=== PATIENT | female | born 1975 | race Caucasian/White ===

== ENCOUNTER 2017-12-18 01:56 | Observation (INO) | payer MEDICAID | END 2017-12-18 05:16 | disposition home or self-care (01) | LOC: FLD 01:56 | PROVIDERS: ADMIT Advanced Practice Midwife; ATTEND Advanced Practice Midwife | DX: O09.523 Supervision of elderly multigravida, third trimester (principal); Z3A.39 39 weeks gestation of pregnancy | CPT/HCPCS: 59025; G0378 ==

== ENCOUNTER 2017-12-18 12:02 | Inpatient (IN) | payer MEDICAID ==
[2017-12-18] MEDS ORDERED: OLIVE OIL 118 ML BTL MISC PRN (12:51)
[2017-12-18] MEDS ORDERED: IBUPROFEN 600 MG TAB PO PRN (12:51)
[2017-12-18] MEDS ORDERED: MISOPROSTOL 200 MCG TAB PO PRN (12:51)
[2017-12-18] MEDS ORDERED: LIDOCAINE 1% 300 MG/30 ML SDV SC PRN (12:51)
[2017-12-18] MEDS ORDERED: EPSOM SALT 454 GM TP PRN (12:51)
[2017-12-18] MEDS ORDERED: OXYTOCIN/RINGERS LACTATE 1,000 ML IV PRN (12:51)
[2017-12-18] MEDS ORDERED: TERBUTALINE SULFATE 1 MG/ML VIAL IV PRN (12:51)
[2017-12-18] MEDS ORDERED: AMMONIA AROMATIC 1 EACH AMP IH PRN (12:51)
[2017-12-18] MEDS ORDERED: LR 1,000 ML IV PRN (12:51)
--- NOTE | 2017-12-18 13:20 | PDGENHP ---
History and Physical History and Physical: Care: [facility] HPI: Pt started having contractions last yesterday that began in the morning and become stronger last night. Was evaluated in L & D for a labor check and found to be 2 cm. Contractions spaced out and she went home. She reports they became stronger this morning and are now anywhere from 2 to 5 minutes apart. Moaning and rocking through them. Patient is a 42 yo G 3 P 1 @ 39.4 weeks that presents to L&D with complaints of contractions q 2 - 5 minutes that are intense EDC: 12/21/2017 which is based on LMP: 03/23/2018 which is known and consistent with Ultrasound. Her is complicated by: AMA greater than 40; anemia Review of Systems: Constitutional: Denies any fever, chills, or fatigue HEENT: denies any visual changes, difficulty swallowing, hearing loss Cardiovascular: Denies any chest pain, palpitations, leg swelling Respiratory: denies any cough, wheezing, or shortness of breathe GI: Denies any nausea, vomiting, diarrhea, constipation : denies any dysuria, urgency, frequency, vaginal bleeding Musculoskeletal: denies any muscle or bone pain Skin: denies any rashes Neuro: denies any headache, seizures, lightheadedness, dizziness, or loss of consciousness Psychiatric: denies any depression, anxiety, or SI/HI thoughts HISTORY: Previous OB history: at 42 weeks 9 lb 2 oz uncomplicated Past medical history: hx of severely dysplastic nevi and atypical precancerous nevi. One removed from the abdomen Past surgical history: none Social: Denies any alcohol, tobacco, or drug use. Family history: Not relevant Medications: PNV Allergies (list reaction): PCN- rash; Clindamycin-fever LABS: Rh: O+ ABS: Neg Rubella: non Immune HbsAg: NR HIV: NR VDRL: NR 1hr: results not in the transfer in records; pt states they were normal GC: Neg Chlamydia: Neg Pap: Normal GBS: Neg BMI: (prepreg) 21 PHYSICAL EXAM: Constitutional: WN, A&Ox3 HEENT: normocephalic atraumatic, supple Skin: Warm, dry, intact Heart: RRR, no murmur Chest: CTA-B Abdomen: Soft, nontender, gravid SVE: 6/100 Extremities: neg edema, negative homans sign Neuro: grossly normal Psych: normal affect assessment: FHT baseline 140 +accels, no decels, moderate variability Contractions: toco q 3 Assessment: 1) 42 yo G 3 P 1 with IUP@ 39.4; AMA 2) active labor 3) GBS neg 4) Cat 1 FHR tracing Plan: 1) Admit to L&D 2) Orders added. Desires nitrous for now, may want an epidural 3) MMR pp 4) Anticipate
[2017-12-18 13:41] LABS: PLATELET COUNT 240 10^3/uL (150-400)
[2017-12-18] MEDS ORDERED: fentaNYL 100 MCG/2 ML INJ ONE (13:58)
[2017-12-18] MEDS ORDERED: fentaNYL 2MCG/ML/BUP 0.1% RTU 100 ML BAG EP ONE (13:58)
[2017-12-18] MEDS ORDERED: PHENYLEPHRINE HCL 100 MCG/ML SYR ONE (13:59)
[2017-12-18] MEDS ORDERED: BUPIVACAINE 0.25% 30 ML SDV ONE (13:59)
[2017-12-18] MEDS ORDERED: PHENYLEPHRINE HCL 100 MCG/ML SYR IVP PRN (14:33)
[2017-12-18] MEDS ORDERED: ONDANSETRON 4 MG/2 ML VIAL IVP PRN (14:33)
--- NOTE | 2017-12-18 14:33 | PREANESOB ---
Anesthesia Allergies/Adverse Reactions: Allergy/AdvReac Type Severity Reaction Status Date / Time clindamycin Allergy Mild Fever Verified 12/18/17 02:21 Penicillins Allergy Unknown Unknown Verified 12/18/17 02:21 Visit Medications: Generic Name Dose Route Start Last Admin Trade Name Vishnuq PRN Reason Stop Dose Admin Ammonia (Aromatic Spirit) 1 each 12/18/17 12:51 Ammonia Aromatic IH 12/28/17 12:50 ONCE PRN Fainting Lactated Ringer's 1,000 mls @ 0 mls/hr 12/18/17 12:51 Lr IV 12/19/17 12:50 PRN PRN SEE PROTOCOL CONDITIONS Protocol Per Protocol Oxytocin/Lactated Ringer's 1,000 mls @ 0 mls/hr 12/18/17 12:51 Pitocin 20 Units/Lr (Premix) IV PRN PRN Post bleeding As Directed Ibuprofen 600 mg 12/18/17 12:51 Motrin PO ONCE PRN post , pain Lidocaine HCl 300 mg 12/18/17 12:51 Lidocaine Hcl 1% SC 06/16/18 12:50 ONCE PRN episiotomy Magnesium Sulfate 454 gm 12/18/17 12:51 Epsom Salt TP 06/16/18 12:50 Q1H PRN perineal discomfort Misoprostol 800 - 1,000 mcg 12/18/17 12:51 Cytotec PO 06/16/18 12:50 ONCE PRN Vaginal Atony/B[place]eding [place] Oil 118 ml 12/18/17 12:51 Sweet Oil MISC 06/16/18 12:50 ONCE PRN perineal massage Terbutaline Sulfate 0.25 mg 12/18/17 12:51 Brethine IV 06/16/18 12:50 ONCE PRN Tachysystole Discontinued Medications Generic Name Dose Route Start Last Admin Trade Name Po PRN Reason Stop Dose Admin Bupivacaine HCl Confirm 12/18/17 13:59 Sensorcaine 0.25% Sdv Administered 12/18/17 14:00 Dose 30 ml .ROUTE .STK-MED ONE Fentanyl Confirm 12/18/17 13:58 Sublimaze Administered 12/18/17 13:59 Dose 100 mcg .ROUTE .STK-MED ONE Fentanyl/Bupivacaine HCl Confirm 12/18/17 13:58 Fentanyl/Bupivacaine/Ns 2 Mcg/Ml 0.1% (Premix Administered 12/18/17 13:59 Dose 100 ml EP .STK-MED ONE Phenylephrine HCl Confirm 12/18/17 13:59 Neosynephrine Administered 12/18/17 14:00 Dose 1,000 mcg .ROUTE .STK-MED ONE - Focused Exam Neck exam: FROM Mallampati Score: Class 1 Mouth exam: normal dental/mouth exam Pulmonary: no respiratory distress Cardiovascular: regular rate and rhythym Labs: 12/18/17 13:00 Patient ABO/Rh O POSITIVE 12/18/17 13:00 - Plan Consent Signed and on Chart: Yes Patient/Guardian Understands and Agrees to Plan: Yes
[2017-12-18] MEDS ORDERED: LIDOCAINE 1% 300 MG/30 ML SDV ONE (14:35)
[2017-12-18] MEDS ORDERED: OLIVE OIL 118 ML BTL ONE (14:35)
[2017-12-18] MEDS ORDERED: OXYTOCIN 10 UNIT/ML VIAL ONE (14:36)
[2017-12-18] MEDS ORDERED: MISOPROSTOL 200 MCG TAB ONE (14:36)
[2017-12-18] MEDS ORDERED: TERBUTALINE SULFATE 1 MG/ML VIAL ONE (14:36)
[2017-12-18] MEDS ORDERED: LR 500 ML IV SCH (15:00)
[2017-12-18] MEDS ORDERED: fentaNYL 2MCG/ML/BUP 0.1% RTU 100 ML EP SCH (15:00)
--- NOTE | 2017-12-18 16:27 | OBDEL ---
Info Type: Vaginal Presentation at Delivery: Vertex L&D Analgesia/Anesthesia Type: Epidural, Nitrous GBS+: No Indications for Delivery: Spontaneous Labor Vaginal Delivery - Delivery Provider Delivery Physician/CNM: Yue Ward - Labor and Delivery Onset of Contractions Date: 12/18/17 Onset of Contractions Time: 07:00 Rupture of Membranes Date: 12/18/17 Rupture of Membranes Time: 15:00 Rupture of Membranes Type: Spontaneous Amniotic Fluid Color: Clear Dilation Complete Date: 12/18/17 Dilation Complete Time: 15:05 Placenta Delivery Date: 12/18/17 Placenta Delivery Time: 15:45 Total Hours of Labor: 8 Laceration: 1st Degree (Gaping at introitus. 2 interrupted to approximate) Repair: 4-0, Vicryl Vaginal Sponge Count Correct: Yes Vaginal Needle Count Correct: Yes Vaginal Sweep Performed: Yes EBL: 500 Delivery Events: Post Hemorrhage (Quickly resolved with massage and IV pitocin) ICD10 Worksheet Patient Problems: Problems Problem Status Onset Encounter for full-term uncomplicated delivery Acute - ICD10 Problem Qualifiers (1) Encounter for full-term uncomplicated delivery
[2017-12-18] MEDS ORDERED: SIMETHICONE 80 MG TAB CHEW PO PRN (16:29)
[2017-12-18] MEDS ORDERED: HYDROCORTISONE 0.5% CREAM TP PRN (16:29)
[2017-12-18] MEDS ORDERED: DOCUSATE SODIUM 100 MG CAP PO PRN (16:29)
--- NOTE | 2017-12-18 16:52 | POSTANESTH ---
Post Anesthetic Evaluation Cardiovascular Status: Similar to Pre-Op Cond Respiratory Status: Similar to Pre-op Cond. Level of Consciousness/Mental Status: Alert and Oriented Pain Control: Adequate, Prn Tx Ordered Nausea/Vomiting Control: Adequate, Prn Tx Ordered Complications Possibly Related to Anesthesia: None Noted
[2017-12-18] MEDS: IBUPROFEN 600 MG TAB PO SCH (22:58)
[2017-12-19] MEDS: IBUPROFEN 600 MG TAB PO SCH ×3 (04:27→18:28)
[2017-12-19] MEDS: ACETAMINOPHEN 325 MG TAB PO SCH ×3 (06:42→18:12)
[2017-12-19] MEDS ORDERED: MEASLES,MUMPS&RUBELLA VACC/PF 0.5 ML VIAL SC ONE ×2 (08:00→16:30)
[2017-12-19 09:02] VITALS: BP 119/79
--- NOTE | 2017-12-19 13:04 | OBGCSDC ---
General Delivery Information - General Info : 3 Para: 2 Abortions: 1 Type: Vaginal L&D Analgesia/Anesthesia Type: Epidural, Nitrous Admission Date: 12/18/17 Labs: Patient ABO/Rh O POSITIVE 12/18/17 13:00 Hct 34.3 % (38.0-47.0) L 12/18/17 13:00 - Hospital Course : 12/19/17 13:02 S) Pt doing well, reports min pain and bleeding. she is ambulating and voiding without difficulty. She is . She desires discharge home today. O) VSS, afebrile constitutional: WNF, A&Ox3 HEENT: normocephalic, atraumatic, supple Heart: RRR, No murmur Chest: CTA-B Breasts: soft, nontender,no engorgement, nipples intact/normal Abdomen: Soft, nontender Uterus: Firm at U-2 Lochia: Minimal rubra Perineum: Intact, healing well Extremities: Trace edema, and negative Nohemi's sign Neuro: Grossly normal A) 42 year-old S/P PPD#1 anemia P) Discharge home today Continue cont PO iron Pelvic rest x6wks Discussed danger signs (infection, preeclampsia, depression, heavy bleeding, etc ) RTO in 2/4/6 weeks 12/19/17 13:03 Vaginal - Delivery Provider Delivery Physician/CNM: Yue Ward - Diagnosis Rupture of Membranes Type: Spontaneous Amniotic Fluid Color: Clear Laceration: 1st Degree (Gaping at introitus. 2 interrupted to approximate) Repair: 4-0, Vicryl Delivery Events: Post Hemorrhage (Quickly resolved with massage and IV pitocin) - Delivery EBL: 500 [place] Data DANIEL: 12/21/17 Gestational Age: 39 week(s) and 5 day(s) [place] Delivery Date: 12/18/17 Delivery Time: 15:12 Sex of Infant: Male [place] Weight (gm): 3872 kg Score (1 Min): 9 Score (5 Min): 9 Discharge Information - Discharge Information Prescriptions: Ibuprofen [Motrin (*)] 600 mg PO Q6H #60 tab Condition: Good
== END 2017-12-19 18:41 | disposition home or self-care (01) | DRG 560 ==
LOC: FLD 12:02 → FOB 19:16
PROVIDERS: ADMIT Advanced Practice Midwife; ATTEND Advanced Practice Midwife
DX: O70.0 First degree perineal laceration during delivery (principal); O72.1 Other immediate postpartum hemorrhage; Z3A.39 39 weeks gestation of pregnancy; Z37.0 Single live birth
CPT/HCPCS: J2370; J2590; J3010; J3105